=== PATIENT | male | born 1950 | race Caucasian/White ===

== ENCOUNTER 2023-05-12 09:08 | Observation (INO) | payer OTHER ==
[2023-05-12] VITALS (9 sets, daily range): BP systolic 114–137; BP diastolic 50–102; PULSE 60–74; TEMP 97.4–97.9
[~2023-05-12] VITALS: Ht 175.3 cm; Wt 82.2 kg
[2023-05-12 09:56] LABS: INR 1.1 (0.8-3.0); PROTHROMBIN TIME 11.9 SECONDS (9.7-12.8)
[2023-05-12 10:34] LABS: BASO % 0.4 % (0.0-2.0); EOS # 0.2 K/mm3 (0.0-0.7); EOS % 1.7 % (0.0-4.0); GRAN # 6.7 K/mm3 (1.4-6.5); GRAN % 72.8 % (42.2-75.2); HEMATOCRIT 45.3 % (42.0-52.0); HEMOGLOBIN 15.1 g/dl (13.5-18.0); LYMPH # 1.4 K/mm3 (1.2-3.4); LYMPH % 14.8 % (20.0-51.0); MEAN CELL VOLUME 91 fl (80.0-100.0); MEAN CORPUSCULAR HEMOGLOBIN 30 pg (27-31); MEAN CORPUSCULAR HGB CONC 33 g/dl (33.0-37.0); MEAN PLATELET VOLUME 10.9 fl (7.4-10.4); MONO # 0.9 K/mm3 (0.1-0.6); MONO % 9.8 % (1.7-9.3); PLATELET COUNT 218 K/mm3 (130-400); RED BLOOD COUNT 4.99 M/mm3 (4.20-5.60); REDCELL DISTRIBUTION WIDTH-CV 13.5 % (11.5-14.5)
[2023-05-12 10:42] LABS: ALANINE AMINOTRANSFERASE 24 U/L (0-55); ALKALINE PHOSPHATASE 109 U/L (40-150); ANION GAP 14 mmol/L (7-16); AST,SGOT 23 U/L (5-34); BILIRUBIN,TOTAL 0.7 mg/dL (0.2-1.2); BLOOD UREA NITROGEN 31 mg/dL (8-26); CARBON DIOXIDE 22 mmol/L (23-31); CHLORIDE 105 mmol/L (98-107); CREATININE, serum 1.31 mg/dL (0.72-1.25); GLUCOSE 129 mg/dL (70-99); POTASSIUM 4.4 mmol/L (3.5-4.5); SODIUM 141 mmol/L (136-145)
[2023-05-12 10:53] LABS: TROPONIN-I < 0.010 ng/mL (0.00-0.033)
--- NOTE | 2023-05-12 11:24 | NUR ---
Pt was transferred from ER to chemical lab supervisor for emergent BiV ICD placement. Pt gave verbal consent for procedure. and daughter were with pt and were escorted to cathlab waiting room. Transcutaneous pacing for hr<[address] for transport[address] Please see merge documentation for record of interventions, vitals and medications administered during procedure.
--- NOTE | 2023-05-12 12:45 | NUR ---
Pt arrives to ICU 6 from skill labor at this time; pt has biventricular pacemaker and ICD implants. Pt's and daughter at the bedside. Pacemaker site has dressing covering; site is soft, clean, dry, and intact. Ice pack placed to site. Pt reports no pain at this time. Alert and oriented x4; is able to answer admission quesions. Pt knows that he takes a blood pressure and cholesterol medication but is unsure of their names; his is working on contacting his PCP to obtain med information. Will let us know when she gets it. Pt has cloths and cellphone at the bedside. Pt's states she will take his wallet home with her. Pt instructed to call for assistance. Call light in reach and bed alarm on.
[2023-05-12] MEDS ORDERED: REVATIO20 MG PO (16:43)
[2023-05-12] MEDS ORDERED: LIPITOR 40MG TA40 MG PO (16:44)
[2023-05-12] MEDS ORDERED: DRIZALMA SPRINK30 MG PO (16:44)
[2023-05-12] MEDS ORDERED: HYZAAR 25 MG-101 TAB PO (16:45)
[2023-05-12] MEDS ORDERED: PRIL40 PO (16:46)
--- NOTE | 2023-05-12 19:30 | NUR ---
Received report from day shift nurseBrook. Pt is resting in bed with the call light within reach. Pt's vitals are stable and HR is AV-paced in the 60's. Pt denies pain and pt left chest site for the pacemaker is clean, dry and intact and soft to touch. Pulses are felt.
[2023-05-13] VITALS (45 sets, daily range): BP systolic 111–153; BP diastolic 70–93; PULSE 60–74; TEMP 97.8–99.2; O2SAT 84–97
[2023-05-13 06:32] LABS: ALBUMIN 3.6 gm/dL (3.4-4.8); BILIRUBIN,TOTAL 0.5 mg/dL (0.2-1.2); CALCIUM 9.4 mg/dL (8.4-10.2); CREATININE, serum 0.97 mg/dL (0.72-1.25); POTASSIUM 4.1 mmol/L (3.5-4.5); TOTAL PROTEIN 6.5 gm/dL (6.2-8.1)
[2023-05-13 06:38] LABS: TROPONIN-I 0.015 ng/mL (0.00-0.033)
--- NOTE | 2023-05-13 07:26 | NUR ---
Pt had an uneventful night. Pt denied chest pain and SOB throughout the night. Pulses felt and pt alert. Pt's vitals were stable throughout the night. Pt was put on 1L of O2 via NC at the beginning of the shift due to the O2 dropping to 88-89% when the pt was sleeping. Pt's left chest site was clean, dry, and intact, and soft to touch. The sling on the left arm has been on all shift. Pt NPO at 0000. Gave report to EVELYN Buck.
--- NOTE | 2023-05-13 08:47 | NUR ---
0700 REPORT RECEIVED FROM EVELYN PUGA. PT RESTING IN BED, VSS. PACEMAKER INSERTION SITE WNL, DRESSING CDI. ARM SLING TO L ARM IN PLACE. AMIO INFUSING TO R FOREARM PERIPHERAL IV ORDERED. PT DENIES NEEDS AT THIS TIME, CALL LIGHT IN REACH.
--- NOTE | 2023-05-13 08:49 | NUR ---
floorworker lasting met with pt and his , Aiyana [phone] at bedside to discuss intake information. Pt reports he lives with his in [place], [place] but they were visiting their daughter in [place]. Pt's PCP is Dr. Gayla Perea. Pt obtains medications from [facility]'s pharmacy with no difficulties. Pt is independent with ADLS and does not use DME. Pt reports to have a DPO[facility] at home listing his . They are unable to retrieve it at this time. Pt intends to return home pending further reccomendations.
--- NOTE | 2023-05-13 09:54 | NUR ---
Initial visit; Patient doing well and thanked Supervisor [employer] for looking in on him and offering God's blessings for a rapid and thorough recovery. Patient going home soon and states it was nice to meet Supervisor As[employer] Rem[employer].
--- NOTE | 2023-05-13 10:55 | NUR ---
Please see merge documentation for record of interventions, vitals and medications administered during left heart cath.
[2023-05-13] MEDS ORDERED: CEPHALEXIN500 M1 PO (13:17)
[2023-05-13] MEDS ORDERED: CORDARONE200 MG/TAB PO (13:19)
[2023-05-13] MEDS ORDERED: LIPITOR 80MG80 MG PO (13:28)
[2023-05-13] MEDS ORDERED: TOPROL XL 50MG50 MG PO (13:29)
[2023-05-13] MEDS ORDERED: COZAAR 50MG50 MG/TAB PO (13:29)
[2023-05-13] MEDS ORDERED: ASPIRIN E.C. 8181 MG PO (13:29)
--- NOTE | 2023-05-13 17:15 | NUR ---
1035 PT TAKEN TO LICENSE ISSUER VIA BED BY LICENSE ISSUER STAFF. 1200 PT RETURNED TO ICU POST CATH. RADIAL COMPRESSION BAND IN PLACE TO R RADIAL ARTERY. PT DENIES ANY PAIN. 1630 POST OP VITALS WNL THROUGHOUT AFTERNOON, RADIAL COMPRESSION BAND DEFLATED PER PROTOCOL. THIS NURSE REVIEWED D/C PACKET W/ PT INCLUDING NEW MEDICATION INFORMATION, INCISION AND CATH SITE CARE INSTRUCTIONS, S/SX OF COMPLICATIONS. ADVISED PT TO FOLLOW UP W/ PCP IN [place] IN 10 DAYS AND TO ESTABLISH CARE W/ LOCAL RIGGING SLINGER. PT AND VERBALIZED UNDERSTANDING OF INSTRUCTIONS. PT DISCHARGED AMBULATORY TO HOME W/ .
== END 2023-05-13 16:30 | disposition home or self-care (01) ==
LOC: COL.ER 09:08 → MEDICAL 10:32 → ICU 10:32
PROVIDERS: Family Medicine; ADMIT Internal Medicine
DX: I44.2 Atrioventricular block, complete (principal); I50.20 Unspecified systolic (congestive) heart failure; R55 Syncope and collapse; K21.9 Gastro-esophageal reflux disease without esophagitis; I11.0 Hypertensive heart disease with heart failure; E78.5 Hyperlipidemia, unspecified; I47.20 Ventricular tachycardia, unspecified; I44.7 Left bundle-branch block, unspecified; F32.A Depression, unspecified; Z79.899 Other long term (current) drug therapy
CPT/HCPCS: C1769; C1777; C1882; C1898; C1900; G0378; J0282; J0461; J0665; J0690; J1644; J2250; J2270; J3010; J7030; J7060; Q9967